=== PATIENT | male | born 1980 | race Caucasian/White ===

== ENCOUNTER 2021-05-19 19:19 | Emergency (ER) | payer OTHER ==
[~2021-05-19] VITALS: Ht 175.3 cm; Wt 95.9 kg
--- NOTE | 2021-05-19 20:03 | REP ---
INDICATION: CHEST PAIN. COMPARISON: None. TECHNIQUE: AP upright chest image was obtained. FINDINGS: The lungs are clear. The heart borders mediastinum and pulmonary vascular pattern normal. The upper abdominal bowel gas pattern is normal. There are no bony abnormalities chest. IMPRESSION: No evidence of acute cardiopulmonary pathology. <Electronically signed by Andrew Kasper > 05/19/211958
[2021-05-19 20:12] LABS: BASO # 0.1 10^3/uL (0.0-0.2); BASO % 0.6 % (0.0-1.0); EOS # 0.2 10^3/uL (0.0-0.5); EOS % 1.6 % (0.0-3.0); HEMOGLOBIN 16.4 g/dl (13.5-17.5); LYMPH # 2.5 10^3/uL (1.5-5.0); LYMPH % 20.7 % (24.0-44.0); MEAN CORPUSCULAR HEMOGLOBIN 33.8 pg (27.0-33.0); MEAN CORPUSCULAR HGB CONC 35.7 g/dl (32.0-36.5); MEAN CORPUSCULAR VOLUME 94.8 fl (80.0-96.0); MONO # 0.7 10^3/uL (0.0-0.8); MONO % 5.6 % (2.0-8.0); NEUTROPHILS # 8.4 10^3/uL (1.5-8.5); NEUTROPHILS % 71.1 % (36.0-66.0); PLATELET COUNT, AUTOMATED 306 10^3/uL (150-450); RED BLOOD COUNT 4.85 10^6/uL (4.30-6.10); WHITE BLOOD COUNT 11.8 10^3/uL (4.0-10.0)
[2021-05-19] MEDS: GI COCKTAIL 50ML BTL(HYOSCYAMINE/MAALOX/LIDOCAINE VISCOUS)(1:3:1) PO ONE (20:25)
[2021-05-19 20:54] LABS: ALBUMIN 4.3 GM/DL (3.2-5.2); ALT/SGPT 24 U/L (12-78); BILIRUBIN,DIRECT 0.2 MG/DL (0.0-0.2); BILIRUBIN,TOTAL 0.9 MG/DL (0.2-1.0); BLOOD UREA NITROGEN 17 MG/DL (7-18); CALCIUM LEVEL 9.8 MG/DL (8.5-10.1); CARBON DIOXIDE LEVEL 28 MEQ/L (21-32); CHLORIDE LEVEL 104 MEQ/L (98-107); GLOMERULAR FILTRATION RATE > 60.0 (>60); GLUCOSE, FASTING 103 MG/DL (70-100); LIPASE 127 U/L (73-393); NT-PRO BNP 15 PG/ML (<125); POTASSIUM SERUM 4.4 MEQ/L (3.5-5.1); SODIUM LEVEL 141 MEQ/L (136-145); TOTAL PROTEIN 8.3 GM/DL (6.4-8.2)
[2021-05-19] MEDS ORDERED: ISOVUE-370 76% 100ML VIAL As Ordered ONE (21:17)
--- NOTE | 2021-05-19 22:19 | REPVR ---
PROCEDURE INFORMATION: Exam: CTA Chest With Contrast Exam date and time: 05/19/2021 9:42 PM Age: 40 years old Clinical indication: Pain; Radiating; Additional info: Chest pain into back; R/O taa TECHNIQUE: Imaging protocol: Computed tomographic angiography of the chest with contrast. 3D rendering (Not supervised by radiologist): MIP and/or 3D reconstructed images were created by the technologist. Radiation optimization: All CT scans at this facility use at least one of these dose optimization techniques: automated exposure control; mA and/or kV adjustment per patient size (includes targeted exams where dose is matched to clinical indication); or iterative reconstruction. Contrast material: ISOVUE 370; Contrast volume: 75 ml; Contrast route: INTRAVENOUS (IV); COMPARISON: CR PORTABLE CHEST X-RAY 05/19/2021 7:42 PM FINDINGS: Peak opacification is within the pulmonary arterial system. There is satisfactory opacification of the pulmonary arterial system. No evidence of filling defect within the main, lobar, segmental or proximal subsegmental branches of the pulmonary arterial system. No evidence of pulmonary embolic disease. Although peak opacification is within the pulmonary arterial system, there is no definite evidence of thoracic aortic aneurysm, dissection or injury. There are scattered small granuloma in the lung mack bilaterally, the largest in the right middle lobe measuring up to 10 mm. Mild dependent atelectatic changes in the posterior lungs. There are calcified mediastinal lymph nodes. There is a small fluid attenuation lesion adjacent to the aortic arch in the aortic or pulmonary window measuring up to 11 mm. This is fluid attenuation and may represent a small pericardial cyst. Mediastinal structures are otherwise unremarkable. IMPRESSION: Peak opacification is within the pulmonary arterial system. No evidence of pulmonary embolic disease. No definite evidence of thoracic aortic aneurysm, dissection or injury. No definite acute thoracic process. Additional nonemergent findings as described above. Electronically signed by: Carter Jay On 05/19/2021 22:18:40 PM
[2021-05-19] MEDS ORDERED: PRIL20TA2 PO (22:42)
[2021-05-19] MEDS ORDERED: SUCR1SS PO (22:42)
[2021-05-19 22:55] VITALS: BP 129/86
--- NOTE | 2021-05-20 07:43 | ED PDOC ---
Post-Departure Follow-Up radiology report faxed to [facility] Jessika Ley MD May 20, 2021 07:43
--- NOTE | 2021-05-20 09:09 | ECGEPIP ---
[facility] - ED Test Date: 2021-05-19 Pat Name: MELO MANLEY Department: Room: - Gender: Male Executive Search Consultant: ADIS : 1980 Requested By: SYED ARRINGTON Order Number: [id number] Reading MD: Bravo Dixon Measurements Intervals [place] Rate: 67 P: 9 WV: 146 QRS: -20 QRSD: 104 T: 20 QT: 382 QTc: 403 Interpretive Statements Normal sinus rhythm with sinus arrhythmia Possible Incomplete right bundle branch block NO PRIORS FOR COMPARISON Electronically Signed on 05-20-2021 9:09:09 EDT by Bravo Dixon
== END 2021-05-19 23:05 | disposition home or self-care (01) ==
LOC: M ED 19:19
DX: K29.70 Gastritis, unspecified, without bleeding (principal); R94.31 Abnormal electrocardiogram [ECG] [EKG]; F90.9 Attention-deficit hyperactivity disorder, unspecified type; F17.220 Nicotine dependence, chewing tobacco, uncomplicated
CPT/HCPCS: 71045; 71275; 80048; 80076; 83690; 83880; 84443; 84484; 85025; 93005; 93041; 94760; 99285; Q9967